=== PATIENT | male | born 1995 | race Caucasian/White ===

== ENCOUNTER 2017-12-30 19:20 | Emergency (ER) | payer OTHER, SELFPAY ==
[2017-12-30 19:21] VITALS: BP 124/98; PULSE 96; RESP 20; TEMP 36.8; O2SAT 98; BMI 25.9
[2017-12-30 19:32] VITALS: BP 133/89; PULSE 95; RESP 18; O2SAT 97
--- NOTE | 2017-12-30 19:40 | RAD_ITS ---
STUDY: X-RAY CHEST REASON FOR EXAM: Male, 22 years old. Shortness of breath and chest pain. TECHNIQUE: PA and lateral views of the chest. COMPARISON: None. FINDINGS: The lungs are clear and expanded. There is no demonstrated pleural abnormality. Normal size heart. Normal mediastinum and isidoro. Normal visualized pulmonary arteries. Normal visualized aortic arch and descending thoracic aorta. Normal visualized thoracic spine. Normal visualized ribs, clavicles, and shoulders. There is no demonstrated abnormality of the visualized soft tissue structures of the upper abdomen. RAD/Chest PA and Lateral IMPRESSION: No evidence of acute cardiopulmonary process. Electronically Signed: Behzad Adhikari DO at 20:01 EDT , Service support ,
--- NOTE | 2017-12-30 19:48 | ED.VISSUMM ---
- ER Visit Summary Date of Service: 12/30/17 Chief Complaint: Dyspnea, hoarse voice nonproductive cough and pleurisy History of Present Illness: The patient is a 22 M who was a former smoker from the age of [age]. Presents with nasal congestion, nonproductive cough dyspnea and pleuritic chest pain anterior left chest. He states he has been short of breath for 1 year. The other symptoms started 3 days ago. He denies fever. Denies headache. He denies any ocular auditory symptoms. He denies any GI symptoms. He denies any skin lesions. Physical Examination: Vital signs are remarkable for a blood pressure 133/89. He has a hoarse voice. TMs normal. Pupils equal round reactive. Extra muscle intact. Conjunctive is not injected. Nares patent with congestion. Posterior pharynx unremarkable. Trachea midline. Lungs reveal scattered rales right lower lobe posteriorly. Heart is regular without murmur, gallop or rub. Abdomen soft nontender. Lower extremity exam reveals no swelling, discoloration, leg vein distention, palpable coarseness on suspicion of deep venous system. Test Results: Two-view chest x-ray interpreted by me as negative. Cardiac silhouette and mediastinum are normal. Lung parenchyma normal. Osseous structures normal. Emergency Department Course and Treatment: Because of the scattered rales posteriorly will obtain a chest x-ray to evaluate for pneumonia. Treatment Plan: Since there is no evidence of pneumonia and symptoms started 3 days ago will treat symptomatically. Since he reports anaphylaxis to ibuprofen he received prednisone for his pleuritic chest pain. Disposition: Discharged to home Impression: 1. Acute viral bronchitis 2. Pleurisy secondary #1 This note was generated with [employer] dictation software. It may contain incorrect words, spelling, and punctuation that were not noted in review of the chart prior to signing ED Disposition - Plan for ED Patient: Disposition: Home or Assisted Living Chief Complaint: Chest Pain Instructions: ED URI Viral, ED Chest Pain Pleurisy Prescriptions: Prednisone [Deltasone] 40 mg PO DAILY #10 tab Referrals: Esther Lopez [NON-STAFF] - 1 Week if not improving
--- NOTE | 2017-12-30 19:53 | ED.DCSUM_ITS ---
- ER Visit Summary Date of Service: 12/30/17 Chief Complaint: Dyspnea, hoarse voice nonproductive cough and pleurisy History of Present Illness: The patient is a 22 M who was a former smoker from the age of [age]. Presents with nasal congestion, nonproductive cough dyspnea and pleuritic chest pain anterior left chest. He states he has been short of breath for 1 year. The other symptoms started 3 days ago. He denies fever. Denies headache. He denies any ocular auditory symptoms. He denies any GI symptoms. He denies any skin lesions. Physical Examination: Vital signs are remarkable for a blood pressure 133/89. He has a hoarse voice. TMs normal. Pupils equal round reactive. Extra muscle intact. Conjunctive is not injected. Nares patent with congestion. Posterior pharynx unremarkable. Trachea midline. Lungs reveal scattered rales right lower lobe posteriorly. Heart is regular without murmur, gallop or rub. Abdomen soft nontender. Lower extremity exam reveals no swelling, discoloration , leg vein distention, palpable coarseness on suspicion of deep venous system. Test Results: Two-view chest x-ray interpreted by me as negative. Cardiac silhouette and mediastinum are normal. Lung parenchyma normal. Osseous structures normal. Emergency Department Course and Treatment: Because of the scattered rales posteriorly will obtain a chest x-ray to evaluate for pneumonia. Treatment Plan: Since there is no evidence of pneumonia and symptoms started 3 days ago will treat symptomatically. Since he reports anaphylaxis to ibuprofen he received prednisone for his pleuritic chest pain. Disposition: Discharged to home Impression: 1. Acute viral bronchitis 2. Pleurisy secondary #1 This note was generated with [employer] dictation software. It may contain incorrect words, spelling, and punctuation that were not noted in review of the chart prior to signing ED Disposition - Plan for ED Patient: Disposition: Home or Assisted Living Chief Complaint: Chest Pain Instructions: ED URI Viral, ED Chest Pain Pleurisy Prescriptions: Prednisone [Deltasone] 40 mg PO DAILY #10 tab Referrals: Esther Lopez [NON-STAFF] - 1 Week if not improving
[2017-12-30 19:59] VITALS: BP 125/80; PULSE 85; RESP 14; O2SAT 98
== END 2017-12-30 20:17 | disposition home or self-care (01) ==
LOC: ED 20:06
PROVIDERS: Emergency Provider Emergency Medicine
DX: J20.8 Acute bronchitis due to other specified organisms (principal); R09.1 Pleurisy
CPT/HCPCS: 71046; 99284; A4216